=== PATIENT | female | born 1975 | race Caucasian/White ===

== ENCOUNTER → 2016-11-16 | Outpatient (CLI) | payer BC | LOC: KOH-I 11:08 | DX: S49.91XA Unspecified injury of right shoulder and upper arm, initial encounter (principal); S97.01XA Crushing injury of right ankle, initial encounter; S97.81XA Crushing injury of right foot, initial encounter | CPT/HCPCS: 73000; 73030; 73610; 73630 ==

== ENCOUNTER → 2021-02-04 | Outpatient (CLI) | payer BC ==
[2021-02-04 16:37] LABS: HEMOGLOBIN 12.4 gm/dl (12.3-15.3); RED BLOOD COUNT 4.35 M/UL (4.00-5.10); WHITE BLOOD COUNT 6.5 K/UL (4.5-11.0)
[2021-02-04 17:01] LABS: BUN/CREATININE RATIO 23 (0-10)
[2021-02-06 08:14] LABS: THYROXINE (T4) 5.6 ug/dL (4.5-12.0)
== END ==
LOC: LAB 16:06
PROVIDERS: Nurse Practitioner
DX: U07.1 COVID-19 (principal); E11.9 Type 2 diabetes mellitus without complications; R53.83 Other fatigue; E78.5 Hyperlipidemia, unspecified; E55.9 Vitamin D deficiency, unspecified; K21.9 Gastro-esophageal reflux disease without esophagitis
CPT/HCPCS: 36415; 71046; 80053; 80061; 81001; 83036; 84436; 84443; 84480; 85027